=== PATIENT | female | born 1985 | race Asian ===

== ENCOUNTER 2018-10-19 15:28 | Emergency (ER) | payer OTHER ==
[~2018-10-19] VITALS: Ht 154.9 cm; Wt 47.7 kg
[2018-10-19 15:48] VITALS: BP 114/68
[2018-10-19] MEDS ORDERED: KETOROLAC 30 MG/ML VIAL IM ONE (16:30)
--- NOTE | 2018-10-19 16:57 | NUR ---
PT BIB SELF [facility] STATES +LOC AT TIME OF INCIDENT. NO BRUISING OR SWELLING NOTED TO HEAD. PT IS AWAKE, ALERT, AMBULATORY . PERRL. SITTING IN CHAIR ON PHONE.
--- NOTE | 2018-10-19 17:10 | NUR ---
DPatient discharged with v/s stable. Written and verbal after care instructions given and explained. Patient alert, oriented and verbalized understanding of instructions. Ambulatory with steady gait. All questions addressed prior to discharge. ID band removed. Patient advised to follow up with PMD. Rx of TYLENOL given. Patient educated on indication of medication including possible reaction and side effects. Opportunity to ask questions provided and answered.
[2018-10-19 17:11] VITALS: BP 110/65
== END 2018-10-19 17:10 | disposition home or self-care (01) ==
LOC: MED 15:28
DX: S09.90XA Unspecified injury of head, initial encounter (principal); R42 Dizziness and giddiness; W01.0XXA Fall on same level from slipping, tripping and stumbling without subsequent striking against object, initial encounter; Y93.01 Activity, walking, marching and hiking; Y92.89 Other specified places as the place of occurrence of the external cause; Y99.8 Other external cause status
CPT/HCPCS: 81025; 96372; 99283; J1885

== ENCOUNTER 2018-10-21 23:03 | Emergency (ER) | payer OTHER ==
[~2018-10-21] VITALS: Ht 154.9 cm; Wt 49.0 kg
[2018-10-21 23:08] VITALS: BP 133/87
--- NOTE | 2018-10-21 23:12 | NUR ---
Pt taken to bed 3. Report given to Hanane AGUIRRE.
--- NOTE | 2018-10-21 23:15 | NUR ---
CAME IN WITH C/O HEAD PAINFOR 2 DAYS, SEEN IN ER LAST THURSDAY WITH SAME S/S, S/P FALL LAST THURSDAY.
--- NOTE | 2018-10-21 23:23 | NUR ---
SEEN AND EXAMINED BY SANG WITH ORDERS AND CARRIED OUT.
[2018-10-21] MEDS ORDERED: IBUPROFEN 800 MG TAB PO ONE (23:25)
--- NOTE | 2018-10-21 23:36 | NUR ---
MEDICATED PER [facility] ORDER , PATIENT TOLERATED WELL.
--- NOTE | 2018-10-22 01:03 | NUR ---
ALL RESULTS BACK AND NOTED BY ERMD AND FOR D/C
[2018-10-22 01:14] VITALS: BP 118/74
--- NOTE | 2018-10-22 01:14 | NUR ---
Patient discharged with v/s stable. Written and verbal after care instructions given and explained. Patient alert, oriented and verbalized understanding of instructions. Ambulatory with steady gait. All questions addressed prior to discharge. ID band removed. Patient advised to follow up with PMD. Rx of IBUPROFEN 600MG given. Patient educated on indication of medication including possible reaction and side effects. Opportunity to ask questions provided and answered.
== END 2018-10-22 01:14 | disposition home or self-care (01) ==
LOC: MED 23:03
DX: G44.309 Post-traumatic headache, unspecified, not intractable (principal); F07.81 Postconcussional syndrome
CPT/HCPCS: 70450; 81025; 99284

== ENCOUNTER 2020-07-15 16:57 | Emergency (ER) | payer OTHER ==
[~2020-07-15] VITALS: Ht 154.9 cm; Wt 47.6 kg
[2020-07-15 17:05] VITALS: BP 111/59
--- NOTE | 2020-07-15 17:24 | NUR ---
PATIENT PRESENTS TO ED WITH HAND PAIN. PT STATES SHE HAS HAD LEFT HAND PAIN X 1 WEEK. SHE STATES IT IS TENDER AND SHARP WHEN TOUCHED OR MOVED; PT REPORTS USING TOPICAL MEDICATION AND SPLINT BUT WITH NO RELIEF; DENIES INJURY OR TRAUMA; DENIES N/V/D; SKIN IS PINK/WARM/DRY; AAOX4 WITH EVEN AND STEADY GAIT; LUNGS CLEAR BL; HR EVEN AND REGULAR; PT DENIES ANY FEVER, CP, SOB, OR COUGH AT THIS TIME; PATIENT STATES PAIN OF 0/10 AT THIS TIME; VSS; PATIENT POSITIONED FOR COMFORT; HOB ELEVATED; BEDRAILS UP X1; BED DOWN. ER MADE AWARE OF PT STATUS. NO PHI [place] Addendum: 07/15/20 at 1732 by CORNELIO PAIN /
[2020-07-15] MEDS ORDERED: KETOROLAC 30 MG/ML VIAL IM ONE (17:25)
[2020-07-15] MEDS ORDERED: NAPR-54 PO (17:33)
[2020-07-15 18:19] VITALS: BP 111/59
== END 2020-07-15 18:15 | disposition home or self-care (01) ==
LOC: MED 16:57
DX: M65.4 Radial styloid tenosynovitis [de Quervain] (principal); Z79.899 Other long term (current) drug therapy
CPT/HCPCS: 73110; 96372; 99283; J1885